=== PATIENT | male | born 1980 | race Caucasian/White ===

== ENCOUNTER 2021-09-22 01:33 | Emergency (ER) | payer OTHER ==
[~2021-09-22] VITALS: Ht 188 cm; Wt 99.8 kg
== END 2021-09-22 05:41 | disposition home or self-care (01) ==
LOC: ER 01:33
DX: H57.11 Ocular pain, right eye (principal)
CPT/HCPCS: 99283; A9270

== ENCOUNTER 2025-03-19 09:16 | Day surgery (SDC) | payer OTHER ==
[~2025-03-19] VITALS: Ht 182.9 cm; Wt 99.8 kg
[~2025-03-19 09:16] MED LIST: Dexamethasone Sod Phos 10 MG/ML 1ML VIAL ONE; FentaNYL Citrate 50 MCG/ML 2 ML Injection ONE; Ketorolac Tromethamine 30mg Vial ONE; Midazolam HCl 1MG / ML 2ML Vial ONE; Ondansetron HCl 2 MG / ML 2ML Vial ONE
[2025-03-19] MEDS ORDERED: CefOXitin 2000 mg Vial ONE (10:00)
[2025-03-19] MEDS ORDERED: NS 100 ML IV ONE (10:00)
[2025-03-19] MEDS ORDERED: NS 1,000 ML IV ONE (10:14)
--- NOTE | 2025-03-19 11:06 | NUR ---
03/19/25 1106 KAITLYNN GE ATTEMPTED TO NOTIFY PATIENT THAT THE ROOM IS RUNNING BEHIND, HE IS RESTING WITH EYES CLOSED AND LIGHTLY SNORING. CALL LIGHT AT BEDSIDE
[2025-03-19] MEDS ORDERED: Albuterol 2.5 MG/3 ML VIAL ONE (11:12)
[2025-03-19] MEDS ORDERED: Lidocaine 2% Jelly Uro-Jet ONE (11:14)
[2025-03-19] MEDS ORDERED: FentaNYL Citrate 50 MCG/ML 2 ML Injection ONE (12:14)
[2025-03-19 14:05] VITALS: BP 136/102
[2025-03-19] MEDS ORDERED: HYDROcodone 5-APAP 325 TAB ONE (14:10)
--- NOTE | 2025-03-19 14:43 | NUR ---
03/19/25 1443 GEOFFREY HATCH 50 ML BRIGHT RED URINE AT FIRST VOID. DR SEARS CALLED. RN RDS GIVEN REPORT
== END 2025-03-19 15:22 | disposition home or self-care (01) ==
LOC: ORSCSDS 09:16
PROVIDERS: Urology
PROC: 0TC78ZZ Extirpation of Matter from Left Ureter, Via Natural or Artificial Opening Endoscopic (ICD-10-PCS; principal; 2025-03-19 11:00)
PROC: 0T778DZ Dilation of Left Ureter with Intraluminal Device, Via Natural or Artificial Opening Endoscopic (ICD-10-PCS; principal; 2025-03-19 11:00)
DX: N20.0 Calculus of kidney (principal); N23 Unspecified renal colic; G47.33 Obstructive sleep apnea (adult) (pediatric); F17.210 Nicotine dependence, cigarettes, uncomplicated
CPT/HCPCS: A9270; C1758; C1769; C2617; J0694; J1100; J1885; J2250; J2405; J2704; J3010; J7120

== ENCOUNTER → 2025-04-08 | Outpatient (CLI) | payer OTHER ==
[2025-04-14 05:45] LABS: CALCULI MASS 43 mg
== END ==
LOC: LAB 12:00 → LAB SHORT 12:00
PROVIDERS: Family Medicine
DX: N20.2 Calculus of kidney with calculus of ureter (principal)
CPT/HCPCS: 82365

== ENCOUNTER → 2025-06-10 | Outpatient (CLI) | payer OTHER ==
[2025-06-10 22:08] LABS: Calcium, Urine 37.0 mg/dL (< 17.5); Calcium, Urine Calculation 629.0 mg/24hrs (42.0-353.0)
[2025-06-10 22:09] LABS: Phosphorus, Urine >90.0 mg/dL (20.0-60.0); Uric Acid, Urine 48.2 mg/dL (7.5-49.5)
[2025-06-10 22:16] LABS: Sodium, Urine >600 mmol/L (20-110)
== END ==
LOC: LAB 14:47 → LAB SHORT 14:47
PROVIDERS: Urology
DX: N20.0 Calculus of kidney (principal)
CPT/HCPCS: 81050; 82340; 83735; 84105; 84300; 84560

== ENCOUNTER → 2025-08-06 | Outpatient (CLI) | payer OTHER ==
[2025-08-06 17:38] LABS: Source, Urine Clean Catch
== END | disposition home or self-care (01) ==
LOC: LAB SHORT 17:35 → LAB 17:35
PROVIDERS: Nurse Practitioner Family
DX: R36.1 Hematospermia (principal)
CPT/HCPCS: 81015; 87086